=== PATIENT | female | born 1975 | race Caucasian/White ===

== ENCOUNTER 2017-06-15 09:31 | Emergency (ER) | payer MEDICAID | END 2017-06-15 11:57 | disposition home or self-care (01) | LOC: FTE 09:31 | DX: R05 Cough (principal); R06.89 Other abnormalities of breathing | CPT/HCPCS: 99284; Z7502 ==

== ENCOUNTER 2017-11-12 16:09 | Emergency (ER) | payer MEDICAID | END 2017-11-12 17:13 | disposition home or self-care (01) | LOC: FTE 16:09 | DX: R21 Rash and other nonspecific skin eruption (principal) | CPT/HCPCS: 99283; Z7502 ==